=== PATIENT | female | born 1955 | race African-American/Black ===

== ENCOUNTER 2017-01-23 11:08 | Outpatient (CLI) | payer OTHER ==
--- NOTE | 2017-01-24 08:01 | Vascular Lab Report ---
Right Lower Extremity Venous Duplex Study: Reason for Exam: Right leg swelling. Comments on the Right: All veins visualized are freely compressible without evidence of internal echogenicity. Flow is spontaneous and phasic throughout. No evidence of acute or chronic thrombus is seen in any of the vessels visualized. Comments on the Left: A limited duplex study was done of the proximal veins of the left lower extremity. All veins visualized are freely compressible without evidence of internal echogenicity. Flow is spontaneous and phasic throughout. No evidence of acute or chronic thrombus is seen in any of the vessels visualized. Impression: No evidence of acute or chronic deep venous thrombosis in the right lower extremity.
== END 2017-01-23 11:09 | disposition home or self-care (01) ==
LOC: VAS 11:08
PROVIDERS: ATTEND General Practice
DX: M79.89 Other specified soft tissue disorders (principal)